=== PATIENT | female | born 1960 | race Caucasian/White ===

== ENCOUNTER → 2021-01-05 | Outpatient (CLI) | payer BC ==
--- NOTE | 2021-01-08 11:41 | MM ---
Reason for exam: screening (asymptomatic). Last mammogram was performed 5 years and 8 months ago. History: Patient is nulliparous. Benign excisional biopsy of the right breast, March 04, 2008. Benign stereotactic core biopsy of the right breast, July 15, 2003. Core biopsy of the right breast. Physical Findings: A clinical breast exam by your physician is recommended on an annual basis and results should be correlated with mammographic findings. MG 3D Screening Mammo W/Cad Bilateral CC and MLO view(s) were taken. Prior study comparison: April 24, 2015, right breast MG work up mamm w CAD RT. April 17, 2015, bilateral MG screening mammo w CAD. There are scattered fibroglandular densities. No significant changes when compared with prior studies. ASSESSMENT: Negative, BI-RAD 1 RECOMMENDATION: Routine screening mammogram of both breasts in 1 year.
== END | disposition home or self-care (01) ==
LOC: RADMAMWWP 09:10
PROVIDERS: ATTEND Family Medicine
DX: Z12.39 Encounter for other screening for malignant neoplasm of breast (principal)
CPT/HCPCS: 77063; 77067

== ENCOUNTER → 2022-08-22 | Outpatient (CLI) | payer BC ==
--- NOTE | 2022-08-23 07:48 | MM ---
Reason for Exam: Screening (asymptomatic). Last mammogram was performed 1 year(s) and 7 month(s) ago. Patient History: Menarche at age 16. Patient has no children. Right ovary removed at age 22. Postmenopausal. 03/04/2008, Benign Excisional Biopsy on the right side. Core Biopsy on the Right side. 07/15/2003, Benign Stereotactic Core Biopsy on the right side. Risk Values: Cande 5 year model risk: 2.2%. NCI Lifetime model risk: 10.9%. Prior Study Comparison: 04/17/2015 Bilateral Screening Mammogram, [facility]. 04/24/2015 Right Diagnostic Mammogram, [facility]. 01/05/2021 Bilateral Screening Mammogram, [facility]. Tissue Density: The breast tissue is heterogeneously dense. This may lower the sensitivity of mammography. Findings: Analyzed By CAD. There is no suspicious group of microcalcifications or new suspicious mass in either breast. Overall Assessment: Benign, BI-RAD 2 Management: Screening Mammogram of both breasts in 1 year. A clinical breast exam by your physician is recommended on an annual basis and results should be correlated with mammographic findings. Electronically signed and approved by: Abdoulaye Hull M.D. Radiologis
== END | disposition home or self-care (01) ==
LOC: RADMAMWWP 09:10
PROVIDERS: ATTEND Family Medicine
DX: Z12.31 Encounter for screening mammogram for malignant neoplasm of breast (principal); Z78.0 Asymptomatic menopausal state; Z90.721 Acquired absence of ovaries, unilateral
CPT/HCPCS: 77063; 77067

== ENCOUNTER → 2024-07-09 | Outpatient (CLI) | payer BC ==
--- NOTE | 2024-07-09 16:04 | US ---
EXAMINATION TYPE: US thyroid st tissue head/neck DATE OF EXAM: 07/09/2024 COMPARISON: NONE CLINICAL INDICATION: Female, 64 years old with history of R22.1 LOCALIZED SWELLING, MASS AND LUMP, NE CK; lump left posterior lower neck near shoulder x several years TECHNIQUE: Multiple grayscale and color Doppler ultrasound images of the left posterior neck at palpa ble abnormality were obtained. Comparison images of the right neck were performed. FINDINGS/IMPRESSION: There is a 4.1x0.8x1.9cm at patients area of concern. This is asymmetric from th e contralateral neck within the subcutaneous layer. This appears encapsulated with striations similar to surrounding fat. No internal color flow. Favored to represent a lipoma. [facility] 07/09/2024 3:20 PM
== END | disposition home or self-care (01) ==
LOC: RADUSWWP 14:52
PROVIDERS: ATTEND Family Medicine
DX: R22.1 Localized swelling, mass and lump, neck
CPT/HCPCS: 76536